=== PATIENT | female | born 1975 | race Two or more races ===

== ENCOUNTER 2017-07-15 01:29 | Emergency (ER) | payer MEDICAID ==
[~2017-07-15] VITALS: Ht 149.9 cm; Wt 127.0 kg
[2017-07-15 01:42] VITALS: BP 151/88
== END 2017-07-15 03:00 | disposition left against medical advice (07) ==
LOC: ER 01:29
DX: R10.33 Periumbilical pain (principal); Z53.21 Procedure and treatment not carried out due to patient leaving prior to being seen by health care provider